=== PATIENT | male | born 1940 | race Caucasian/White ===

== ENCOUNTER → 2018-07-07 11:22 | Outpatient (CLI) | payer MEDICARE | END | disposition home or self-care (01) | LOC: D.US 07-01 09:00 | PROVIDERS: ATTEND Internal Medicine Cardiovascular Disease | DX: I71.4 Abdominal aortic aneurysm, without rupture (principal) ==

== ENCOUNTER → 2018-07-08 13:28 | Outpatient (CLI) | payer MEDICARE | END | disposition home or self-care (01) | LOC: D.CT 13:28 | PROVIDERS: ATTEND Internal Medicine Cardiovascular Disease | DX: I71.4 Abdominal aortic aneurysm, without rupture (principal) ==

== ENCOUNTER 2018-08-11 10:16 | Inpatient (IN) | payer MEDICARE ==
[2018-08-11] MEDS ORDERED: LISINOPRIL40 MG PO (10:38)
[2018-08-11] MEDS ORDERED: NORVASC5 MG PO (10:38)
--- NOTE | 2018-08-11 11:43 | NUR ---
YAKOV NOTE: ROXANA IS DEAF/MUTE & REQUESTING INTERPRETOR DAY OF SURGERY. ALYSON, NURSING PROGRAM PROPOSALS COORDINATOR NOTIFIED & STATES SHE WILL MAKE ARRANGEMENTS FOR INTERPRETOR TO ARRIVE AT OPS 0500 08/13/18.
[2018-08-11 12:08] LABS: BASOPHILS 0.2 % (0-2); EOSINOPHILS 1.4 % (0-7); HEMATOCRIT 43.4 % (42.0-54.0); HEMOGLOBIN 15.4 g/dL (13.5-17.5); IMMATURE GRANULOCYTES 0.3 % (0-5); LYMPHOCYTES 13.3 % (15-50); MCH 31.7 pg (26.0-34.0); MCHC 35.5 g/dL (31.0-37.0); MCV 89.3 fL (80.0-100.0); MEAN PLATELET VOLUME 9.6 fL (7.4-10.4); MONOCYTES 10.9 % (2-11); NEUTROPHILS 73.9 % (40-80); PLATELET COUNT 234 10x3/uL (130-400); RBC 4.86 10x6/uL (4.20-6.10); RDW 12.5 % (11.5-14.5); WBC 6.3 10x3/uL (4.8-10.8)
[2018-08-11 12:19] LABS: APTT 32.2 SECONDS (22.8-39.4); INR 1.03 (0.85-1.17)
[2018-08-11 12:24] LABS: ALBUMIN 4.2 g/dL (3.4-5.0); ANION GAP 10.2 mmol/L (8-16); BILIRUBIN - TOTAL 0.66 mg/dL (0.2-1.3); CALCIUM 9.4 mg/dL (8.5-10.1); CARBON DIOXIDE 31.3 mmol/L (21.0-32.0); CREATININE - SERUM 1.2 mg/dL (0.6-1.3); POTASSIUM - SERUM 4.5 mmol/L (3.5-5.1); PROTEIN - SERUM 7.9 g/dL (6.4-8.2)
[2018-08-11 12:29] LABS: APPEARANCE CLEAR (CLEAR); COLOR STRAW (YELLOW)
[2018-08-11 12:30] LABS: BILIRUBIN NEGATIVE (NEGATIVE); GLUCOSE NEGATIVE (NEGATIVE); KETONE NEGATIVE (NEGATIVE); NITRITE NEGATIVE (NEGATIVE); PROTEIN NEGATIVE (NEGATIVE); UROBILINOGEN NORMAL (NORMAL)
[2018-08-13] VITALS (29 sets, daily range): BP systolic 88–133; BP diastolic 34–80; BMI 23.9; BMI 24.2
--- NOTE | 2018-08-13 12:12 | NUR ---
DR CISNEROS BY TO SEE PATIENT. DISCUSSED HIS ROLE FAMILY MEDICINE PHYSICIAN TO PATIENT THROUGH THE WHEEL BUFFER. PT DENIES NEEDS AT THIS TIME.
--- NOTE | 2018-08-13 13:54 | NUR ---
PT HAD SOME NAUSEA. ZOFRAN GIVEN.
--- NOTE | 2018-08-13 14:00 | NUR ---
PT ASKED IF HAD ANY ADDITIONAL QUESTIONS, DENIED QUESTIONS. ASKED IF HE FELT COMFORTABLE WITH VETERINARY RECEPTIONIST LEAVING. PT SIGNED THAT HE FELT GOOD, BUT TIRED. WANTS TO REST. [facility] AND ASKED IF THEY HAD ANY ADDITIONAL THINGS TO TALK WITH THE PATIENT ABOUT TODAY THAT REQUIRED THE USE OF THE VETERINARY RECEPTIONIST, THEY DID NOT. VETERINARY RECEPTIONIST MELI AGAIN ASKED IF PT HAD ANY QUESTIONS OR CONCERNS, AND PATIENT DENIED THAT HE DID. PT BROTHER WAS ALSO AT BEDSIDE AT THIS TIME AND INDICATED HE WOULD BE LEAVING SINCE PT WANTING TO REST. PT DISMISSED BROTHER AND VETERINARY RECEPTIONIST AT THIS TIME. CALL LIGHT IN REACH. SIDE RAILS X2. PT WAS EARLIER INSTRUCTED THAT HE WAS ON BEDREST AND THAT A SCOTT WOULD COLLECT URINE, BUT HE WOULD NEED A BEDPAN FOR A BOWEL MOVEMENT. INDICATED HE UNDERSTOOD. BED ALARM IS ON.
--- NOTE | 2018-08-13 14:55 | NUR ---
PT RESTING QUIETLY WITH EYES CLOSED. NO DISTRESS NOTED. VSS.
--- NOTE | 2018-08-13 16:14 | NUR ---
PT AWAKE, DENIES PAIN. ON VIDEO CHAT WITH FAMILY/FRIENDS. CALL LIGHT IN REACH.
--- NOTE | 2018-08-13 16:37 | MORECARE ---
CASE MANAGEMENT DISCHARGE SUMMARY PATIENT: JUAN GARZA UNIT: [id number] ADM DATE: 08/13/18 AGE: 77 : 42 SEX: M ROOM/BED: [facility] AUTHOR: DONNA GARCIA PHYSICIAN: REFERRING PHYSICIAN: BUSTER GR MD DATE OF SERVICE: 08/13/18 Discharge Plan Patient Name: JUAN GARZA [facility] [facility] 1940 Planned Disposition: Home Anticipated Discharge Date: Discharge Date: Expected LOS: Initial Reviewer: [email or web address] Initial Review Date: 08/13/2018 Generated: 08/13/18 5:36 pm DCPIA - Discharge Planning Initial Assessment Updated by [email or web address]: Halle Coleman on 08/13/18 4:31 pm * Is the patient Alert and Oriented? Yes * How many steps to enter\exit or inside your home? * PCP MADDIE * [facility] * Preadmission Environment Home Alone * ADLs Independent * Other Equipment B/P MACHINE * List name and contact numbers for known caregivers / representatives who currently or will assist patient after discharge: RON GARZA - BROTHER- [phone] * Verbal permission to speak to the caregivers and representatives has been obtained from the patient. Yes * Community resources currently utilized None * Additional services required to return to the preadmission environment? No * Can the patient safely return to the preadmission environment? Yes * Has this patient been hospitalized within the prior 30 days at any hospital? No Patient Name: JUAN GARZA Page 30006 at 1637 All edits/amendments must be made on the electronic document DICTATION DATE: 08/13/18 1636 WASTE PICKER: LISA 08/13/18 1636 RPT#: [id number] DC DATE: STATUS: ADM IN [facility] [address] [place] [address] END OF REPORT
--- NOTE | 2018-08-13 16:49 | MORECARE ---
CASE MANAGEMENT DISCHARGE SUMMARY PATIENT: JUAN GARZA UNIT: [id number] ADM DATE: 08/13/18 AGE: 77 : 42 SEX: M ROOM/BED: [facility] AUTHOR: JOSE,DOC PHYSICIAN: REFERRING PHYSICIAN: BUSTER GR MD DATE OF SERVICE: 08/13/18 Discharge Plan Patient Name: JUAN GARZA Facility: [facility]:[place] : 1940 Planned Disposition: Home Anticipated Discharge Date: Discharge Date: Expected LOS: Initial Reviewer: [email or web address] Initial Review Date: 08/13/2018 Generated: 08/13/18 5:48 pm Comments DCP- Discharge Planning Updated by [email or web address]: Halle Coleman on 08/13/18 3:[address] Patient Name: JUAN GARZA Admission Status: Elective Accout number: [id number] Admission Date: 08-13-2018 : 1940 Admission Diagnosis: Attending: BUSTER GR Current LOS: 1 Anticipated DC Date: Planned Disposition: Home Primary Insurance: MEDICARE A & B Discharge Planning Comments: CM met with patient, floor sanding machine operator and brother Emiliano at bedside after explaining CM role and obtaining verbal consent. Patient is deaf and floor sanding machine operator needed to communicate. Patient lives at home alone and plans to return there upon discharge. Patients brother lives just down street from patient. Patient feels this would be a safe discharge. CM discussed availability / needs of home health and medical equipment. Patient denies any discharge needs at this time. Patient states he will have his brother drive him home upon discharge. CM will continue to follow and assist as needed with discharge planning / needs. Defense Attorney: Halle Coleman DCPIA - Discharge Planning Initial Assessment Updated by [email or web address]: Halle Coleman on 08/13/18 4:31 pm * Is the patient Alert and Oriented? Yes * How many steps to enter\exit or inside your home? * PCP [facility] * [facility] * Preadmission Environment Home Alone * ADLs Independent * Other Equipment B/P MACHINE * List name and contact numbers for known caregivers / representatives who currently or will assist patient after discharge: EMILIANO GARZA - BROTHER- [phone] * Verbal permission to speak to the caregivers and representatives has been obtained from the patient. Yes * Community resources currently utilized None * Additional services required to return to the preadmission environment? No * Can the patient safely return to the preadmission environment? Yes * Has this patient been hospitalized within the prior 30 days at any hospital? No Last DP export: 08/13/18 3:37 p Patient Name: JUAN GARZA Page 58022 at 1649 All edits/amendments must be made on the electronic document DICTATION DATE: 08/13/181647 SECURITY MANAGER: LISA 08/13/181647 RPT#: [id number] [place] DATE: STATUS: ADM IN [facility] [address] [place] [address] END OF REPORT
--- NOTE | 2018-08-13 18:00 | NUR ---
PT CONSUMED ALL CLEAR LIQUID DINNER. NO NAUSEA. DENIES ADDITIONAL NEEDS.
[2018-08-14] VITALS (23 sets, daily range): BP systolic 92–144; BP diastolic 44–101
--- NOTE | 2018-08-14 03:00 | NUR ---
REASSESSMENT COMPLETED PER FLOW SHEET WITH NO ACUTE DISTRESS OBSERVED. CALL LIGHT IN REACH
[2018-08-14 06:31] LABS: HEMATOCRIT 34.2 % (42.0-54.0); HEMOGLOBIN 12.3 g/dL (13.5-17.5); MCH 32.2 pg (26.0-34.0); MCV 89.5 fL (80.0-100.0); MEAN PLATELET VOLUME 9.2 fL (7.4-10.4); RBC 3.82 10x6/uL (4.20-6.10); RDW 12.8 % (11.5-14.5); WBC 14.2 10x3/uL (4.8-10.8)
[2018-08-14 06:47] LABS: ANION GAP 10.7 mmol/L (8-16); CARBON DIOXIDE 26.4 mmol/L (21.0-32.0); CREATININE - SERUM 1.2 mg/dL (0.6-1.3); POTASSIUM - SERUM 4.1 mmol/L (3.5-5.1)
--- NOTE | 2018-08-14 10:13 | NUR ---
RIGHT RADIAL ART LINE REMOVED. SOME BLEEDING. PRESSURE HELD FOR 30 MINUTES. SCOTT CATHETER REMOVED. PT AFTER NO INDICATION OF RISK OF BLEEDING FROM RADIAL WAS THEN WALKED BY PHYSICAL THERAPIST UP AND DOWN LYNNE. PT GOT OUT OF BED AND TOOK SEVERAL STEPS IN ROOM WITH NO ASSIST. BALANCE AND GAIT STEADY, BUT HE INDICATED HE WANTED THE WALKER. SIGNED IF HE USED A WALKER AT HOME AND HE INDICATED HE DID. I ALSO WROTE IT ON THE WHITE BOARD AND HE NODDED THAT HE DID. PT TOLERATED ACTIVITY WELL, NO SOB, NO DISTRESS. C/O "CRAMPING" PAIN IN LOWER RIGHT LEG WHEN WALKING, BUT INDICATED BETTER WHEN SET IN CHAIR. PEDAL PULSES PALPABLE BILATERAL. GROIN SITES SOFT, DRESSING C,D,I.
--- NOTE | 2018-08-14 13:10 | NUR ---
PT SLEEPING IN CHAIR AT BEDSIDE. BROTHER CAME BY AND ASKED ABOUT WHEN PT WOULD DISCHARGE. CONTACTED DR GR NURSE. PLAN FOR D/C IS TOMORROW.
--- NOTE | 2018-08-14 13:51 | NUR ---
PT ASKING FOR A HAMBURGER. BROTHER HAD MENTIONED YESTERDAY BRINGING ONE FOR PATIENT. I CALLED BROTHER RON AND LET HIM KNOW PT ASKING FOR HIM TO BRING ONE LATER.
--- NOTE | 2018-08-14 18:00 | NUR ---
PT ASSISTED UP TO TOILET. VERY LOUD PASSING OF GAS AND STOOL. ALL NEW LINENS PLACED ON BED. PT ASSISTED TO BED AND PLACED ON MONITORING.
--- NOTE | 2018-08-14 19:00 | NUR ---
ASSESSMENT COMPLETED PER FLOWSHEETS. PT AWAKE AND ALERT, FOLLOWS COMMANDS AND RESPONDS IN SIGN LANGUGE, UNABLE TO HEAR OF SPEAK, WE USED WITHE BOARD TO WRITE AND PT GIVES TUMP UP FOR UNDERSTANDING. SBRADY ON CM WITH HR AT 58. DENIES ANY DISCOMFORT AT THIS TIME. BILAT GROIN DRESSSING C,D,I, NO HEMATOMA NOTED. PPP. CALL LIGHT IN REACH. BST WITH IN REACH, BED ALARM ON. WILL CONT TO MONITOR.
--- NOTE | 2018-08-14 19:58 | NUR ---
PT WILL NEED DISTRICT FIRE MANAGEMENT OFFICER FOR DISCHARGE. CALL [employer] AND THEY WILL MAKE ARRANGEMENT FOR ONE. MOST COME OUT OF [place], SO THEY WILL NEED CONTACTED SOON POSSIBLE.
--- NOTE | 2018-08-14 21:45 | NUR ---
PT C/O PAIN AND DISCOMFORT TO ABD, PAIN MED GIVEN PER ORDER. PT REPOSITIONED IN BED FOR COMFORT. HOB UP. SIDE RAILS,CALL LIGHT I NR EACH. CPOC.
--- NOTE | 2018-08-14 23:00 | NUR ---
REASSESSMENT COMPLETED PER FLOWSHEETS. NO ACUTE SIGNS OF DISTRESS NOTED. VSS. CPOC.
[2018-08-15] VITALS (9 sets, daily range): BP systolic 110–149; BP diastolic 46–72; BMI 23.4
--- NOTE | 2018-08-15 01:00 | NUR ---
PT RESTING QUIETLY WITHOUT DISTRESS. VSS. NO NEEDS VOICES AT THIS TIME. WILL CONT TO MONITOR.
[2018-08-15] MEDS ORDERED: COLACE100 MG PO (08:54)
[2018-08-15] MEDS ORDERED: HYDROCODON-ACE1 EAC7 PO (08:55)
--- NOTE | 2018-08-15 10:56 | NUR ---
0715-RECIEVED PER FLOW SHEET--ASLEEP AND RESPONDS EASILY TO LIGHT TACTILE-YARED GROINS SOFT TO TOUCH -NO HEMATOMA-L CVL INSITU AND SALINE LOCKED 0830-CV SERVICES AT BEDSIDE AND VOCALIZED PLAN TO DISCHARGE THIS AM-NOTIFIED HOSPITAL REGULATED SIGN LANGUAGE SERVICES-ARRANGED FOR INVENTORY ADMINISTRATOR AT 1030 AM PT MADE AWARE BY WRITTEN-AND NODDED YES 1015-L CVL REMOVED AND INSTRUCTIONS GIVEN BY WRITTEN 1030-CV SERVICES AND SIGN INVENTORY ADMINISTRATOR AT BEDSIDE-RN PRESENT-SIGNED INSTRUCTION FOR NO DRIVING WHILE TAKING PAIN MEDICINE -FOLLOW UP APPOINTMENT-RETURN TO WORK DAY AND WORK RESTRICTIONS-PT ABLE TO COMMUNICATE UNDERSTANDING VIA INVENTORY ADMINISTRATOR-PROVIDED PT WITH WORK RESTRICTION PAPER-PT CONTACTED BROTHER TEODORON 1100-PT DRESSED AND WAITING FOR BROTHER RAYMUNDO FOR PUBLIC RECORDS OFFICER
--- NOTE | 2018-08-15 16:26 | MORECARE ---
CASE MANAGEMENT DISCHARGE SUMMARY PATIENT: JUAN GARZA UNIT: [id number] ADM DATE: 08/13/18 AGE: 77 : 42 SEX: M ROOM/BED: D[facility] AUTHOR: JOSE,DOC PHYSICIAN: REFERRING PHYSICIAN: BUSTER GR MD DATE OF SERVICE: 08/15/18 Discharge Plan Patient Name: JUAN GARZA Facility: [facility]:[place] : 1940 Planned Disposition: Home Anticipated Discharge Date: Discharge Date: 08/15/2018 Expected LOS: Initial Reviewer: [email or web address] Initial Review Date: 08/13/2018 Generated: 08/15/18 5:25 pm Comments DCP- Discharge Planning Updated by [email or web address]: Halle Coleman on 08/13/18 3:[address] Patient Name: JUAN GARZA Admission Status: Elective Accout number: [id number] Admission Date: 08-13-2018 : 1940 Admission Diagnosis: Attending: BUSTER GR Current LOS: 1 Anticipated DC Date: Planned Disposition: Home Primary Insurance: MEDICARE A & B Discharge Planning Comments: CM met with patient, educational interpreter and brother Emiliano at bedside after explaining CM role and obtaining verbal consent. Patient is deaf and educational interpreter needed to communicate. Patient lives at home alone and plans to return there upon discharge. Patients brother lives just down street from patient. Patient feels this would be a safe discharge. CM discussed availability / needs of home health and medical equipment. Patient denies any discharge needs at this time. Patient states he will have his brother drive him home upon discharge. CM will continue to follow and assist as needed with discharge planning / needs. Criminal Attorney: Halle Coleman DCPIA - Discharge Planning Initial Assessment Updated by [email or web address]: Halle Coleman on 08/13/18 4:31 pm * Is the patient Alert and Oriented? Yes * How many steps to enter\exit or inside your home? * PCP [facility] * [facility] * Preadmission Environment Home Alone * ADLs Independent * Other Equipment B/P MACHINE * List name and contact numbers for known caregivers / representatives who currently or will assist patient after discharge: EMILIANO GARZA - BROTHER- [phone] * Verbal permission to speak to the caregivers and representatives has been obtained from the patient. Yes * Community resources currently utilized None * Additional services required to return to the preadmission environment? No * Can the patient safely return to the preadmission environment? Yes * Has this patient been hospitalized within the prior 30 days at any hospital? No Last DP export: 08/13/18 3:48 p Patient Name: JUAN GARZA Page 30431 at 1626 All edits/amendments must be made on the electronic document DICTATION DATE: 08/15/181624 INOCULATOR: LISA 08/15/185 RPT#: [id number] DC DATE:08/15/18 STATUS: DIS IN [facility] [address] [place] [address] END OF REPORT
--- NOTE | 2018-08-20 13:11 | OP ---
PATIENT NAME: JUAN GARZA MEDICAL RECORD: [id number] :44 [facility] ADMISSION DATE:08/13/18 SURGEON: KEV GR MD DATE OF OPERATION: 08/13/2018 SURGEON: Kev Gr MD MANAGER SOCIAL SERVICES: Ludwin Alexis MD ANESTHESIA: General; Dr. Tello. OPERATIONS PERFORMED: 1. Endovascular stent repair of abdominal aortic aneurysm. 2. Placement of aortobiiliac graft, [address]. 3. Percutaneous access and closure of the femoral artery, +[id number]. PREOPERATIVE DIAGNOSIS: Enlarging abdominal aortic aneurysm. POSTOPERATIVE DIAGNOSIS: Enlarging abdominal aortic aneurysm. INDICATION FOR OPERATION: Enlarging abdominal aortic aneurysm. FINDINGS OF THE OPERATION: Large abdominal aortic aneurysm. FLUOROSCOPY TIME: 12 minutes 45 seconds. CONTRAST: 120 mL. The patient dose radiation 320.37 mGy. ESTIMATED BLOOD LOSS: Less than 100 mL. DESCRIPTION OF PROCEDURE: After informed consent, adequate preoperative medication evaluation, the patient was brought to the operating room, placed on the table in the supine position. After induction of general endotracheal anesthesia and application of appropriate monitoring devices, the chest, abdomen, and both legs were prepped and draped in sterile field, utilizing Betadine scrub, alcohol, and Betadine solution. A Betadine-impregnated drape was also used. Dr. Alexis performed the percutaneous access and closure as well as assisted in positioning the endograft. After percutaneous access was required utilizing ultrasound and C-arm, the patient was given a calculated dose of heparin, after 3 minutes. The pigtail catheter was placed up the left and an arteriogram performed and measurements made. The C-arm was then placed in a 10-degree cranial angulation and the main body exchanged for the 8 sheath in the right groin and placed in the aorta above the renal arteries. The device was partially opened and a repeat arteriogram with cranial angulation demonstrated the lower left renal artery. The fabric line was placed just below the left renal artery and deployed to the contralateral gate. The hooks were then deployed cephalad. The contralateral gate was cannulated from the left and a docking device placed and deployed to the left hypogastric that had been marked with a retrograde sheath injection on the left. The right limb was then deployed and exchange made for 14 sheath on the right and 12 sheath on the left. Utilizing Reliant balloons bilaterally, the graft was dilated. Extra force was used on the right to angioplasty the OPERATIVE REPORT [id number] LARGE,JUAN right common iliac artery, external to the sheath. An aortogram was then performed that demonstrated no endoleak and good position of the graft. The patient then underwent Perclose of each common femoral artery. Arteriogram after the right demonstrated no stenosis and excellent flow. The completion of the left Perclose was performed and the hemostasis was maintained. The patient was given a calculated dose of protamine to reverse the heparin. Hemostasis was achieved. There were excellent distal pulses bilaterally. The patient tolerated the procedure well and was transferred to the CV ICU in satisfactory condition. TRANSINT:[id number] Voice Confirmation ID: [id number] DOCUMENT ID: [id number] KEV GR MD at 1311 CC: [id number] DICTATION DATE: 08/13/18 1040 RETAIL PRODUCT DEMO SPECIALIST: 08/13/18 1338 DIS IN 08/15/18 [id number] [place] [address]
== END 2018-08-15 12:52 | disposition home or self-care (01) | DRG 269 ==
LOC: D.SDCHOLD 11:00 → D.CVICU 08-13 05:00 → D.SDCHOLD 08-13 05:00 → D.CVICU 08-13 11:28
PROVIDERS: ADMIT Internal Medicine Cardiovascular Disease; ATTEND Internal Medicine Cardiovascular Disease
PROC: 04V03DZ Restriction of Abdominal Aorta with Intraluminal Device, Percutaneous Approach (ICD-10-PCS; principal; 2018-08-13 07:30)
DX: I71.4 Abdominal aortic aneurysm, without rupture (principal); I10 Essential (primary) hypertension; H91.3 Deaf nonspeaking, not elsewhere classified; J44.9 Chronic obstructive pulmonary disease, unspecified

== ENCOUNTER → 2019-01-30 10:01 | Outpatient (CLI) | payer MEDICARE ==
[2018-08-15 09:23] VITALS: BMI 23.4
[~2019-01-30 10:01] MED LIST: COLACE100 MG PO; HYDROCODON-ACE1 EAC7 PO; LISINOPRIL40 MG PO; NORVASC5 MG PO
== END | disposition home or self-care (01) ==
LOC: D.CT 10:00
PROVIDERS: ATTEND Internal Medicine Cardiovascular Disease
DX: I71.4 Abdominal aortic aneurysm, without rupture (principal)

== ENCOUNTER → 2019-10-21 09:55 | Outpatient (CLI) | payer MEDICARE ==
[2018-08-15 09:23] VITALS: BMI 23.4
== END | disposition home or self-care (01) ==
LOC: D.HCCARDIO 09:55
PROVIDERS: ATTEND Internal Medicine Cardiovascular Disease
DX: I20.9 Angina pectoris, unspecified (principal)